=== PATIENT | female | born 1995 | race Caucasian/White ===

== ENCOUNTER 2017-05-05 16:45 | Emergency (ER) | payer OTHER ==
[2017-05-05] MEDS ORDERED: Mupirocin 2% OINT* TUBE TOPICAL ONE (19:02)
[2017-05-05] MEDS ORDERED: Sulfamethox/Trimethoprim DS 800/160* TAB PO ONE (19:02)
--- NOTE | 2017-05-05 19:04 | UC ---
Skin Complaint HPI - HPI Summary HPI Summary: Has had belly button pierced for 3 years, 3 days of increasing redness and tenderness with some crusty drainage, no streaking fevers or chills - History of Current Complaint Chief Complaint: UCSkin Time Seen by Provider: 05/05/17 18:55 Stated Complaint: BELLY BUTTON INFECTION Hx Obtained From: Patient ?: No Onset/Duration: Sudden Onset, Lasting Days - 3, Still Present Timing: Constant Onset Severity: Mild Current Severity: Moderate Pain Intensity: 6 Pain Scale Used: 0-10 Numeric Location: Discrete Character: Pain, Redness Aggravating Factor(s): Touch Alleviating Factor(s): Nothing Associated Signs & Symptoms: Positive: Negative - Allergy/Home Medications Allergies/Adverse Reactions: Allergies Allergy/AdvReac Type Severity Reaction Status Date / Time amoxicillin [From Augmentin] Allergy Hives Verified 05/05/17 19:10 [email or web address] Allergy Hives Verified 05/05/17 19:10 clavulanic acid Allergy Hives Verified 05/05/17 19:10 [From Augmentin] Home Medications: Home Medications Norethindrone 1 tab DAILY 05/05/17 [History Confirmed 05/05/17] Review of Systems Constitutional: Negative Skin: Other - erythema 3-4 mm around piercing Eyes: Negative ENT: Negative Respiratory: Negative Cardiovascular: Negative Gastrointestinal: Negative Genitourinary: Negative Motor: Negative Neurovascular: Negative Musculoskeletal: Negative Neurological: Negative Psychological: Negative Is Patient Immunocompromised?: No All Other Systems Reviewed And Are Negative: Yes PMH/Surg Hx/FS Hx/Imm Hx Previously Healthy: Yes - Family History Known Family History: Positive: None - Social History Occupation: Student Lives: Dormitory/Roommates Alcohol Use: None Substance Use Type: None Physical Exam Triage Information Reviewed: Yes Appearance: Well-Appearing, No Pain Distress, Well-Nourished Vital Signs Reviewed: Yes Eye Exam: Normal Eyes: Positive: Conjunctiva Clear ENT Exam: Normal ENT: Positive: Normal ENT inspection, Hearing grossly normal. Negative: Nasal congestion, Nasal drainage, Tonsillar swelling, Tonsillar exudate, Trismus, Muffled voice, Hoarse voice, Dental tenderness Dental Exam: Normal Neck exam: Normal Neck: Positive: Supple, Nontender Respiratory Exam: Normal Respiratory: Positive: Chest non-tender, No respiratory distress, No accessory muscle use Cardiovascular Exam: Normal Cardiovascular: Positive: RRR, No Murmur, Pulses Normal, Brisk Capillary Refill Abdominal Exam: Normal Abdomen Description: Positive: Nontender, No Organomegaly, Soft Bowel Sounds: Positive: Present Musculoskeletal Exam: Normal Musculoskeletal: Positive: Strength Intact, ROM Intact Neurological Exam: Normal Neurological: Positive: Alert, Muscle Tone Normal Psychological Exam: Normal Skin Exam: Normal Course/Dx - Course Course Of Treatment: warm compress, bactroban, bactrim wash 2-3 times aday follow at [facility] prn - Diagnoses Provider Diagnoses: infected naval peircing Discharge - Discharge Plan Condition: Stable Disposition: HOME Prescriptions: Sulfamethox/Trimethoprim DS* [Bactrim DS 800/160 TAB*] 1 tab PO BID #[id number] tab Patient Education Materials: Wound Infection (DC), Warm Compress or Soak (ED) Referrals: [facility] [place] [facility] [Outside] - If Needed
== END 2017-05-05 19:30 | disposition home or self-care (01) ==
LOC: UCCORT 16:45
DX: L08.82 Omphalitis not of newborn (principal); W26.8XXA Contact with other sharp object(s), not elsewhere classified, initial encounter; W45.8XXA Other foreign body or object entering through skin, initial encounter; Y93.89 Activity, other specified; Y92.9 Unspecified place or not applicable
CPT/HCPCS: 99202; A9270-GY; G0463